=== PATIENT | female | born 1960 | race American Indian/Alaskan Native ===

== ENCOUNTER 2016-08-12 10:04 | Outpatient (CLI) | payer MEDICARE ==
--- NOTE | 2016-08-13 11:08 | Vascular Lab Report ---
LOWER EXTREMITY VENOUS DUPLEX: REASON FOR EXAM: Bilateral leg pain. COMMENTS ON THE RIGHT: All veins visualized are freely compressible without evidence of internal echogenicity. Flow is spontaneous and phasic throughout. COMMENTS ON THE LEFT: All veins visualized are freely compressible without evidence of internal echogenicity. Flow is spontaneous and phasic throughout. IMPRESSION: No evidence of acute or chronic deep venous thrombosis in either lower extremity.
--- NOTE | 2016-08-13 15:07 | Mammography Report ---
BONE DEXA:08/12/16 10:04:00 CLINICAL: Postmenopausal.Bilateral leg pain. TECHNIQUE: Two site bone DEXA performed on an Hologic scanner. FINDINGS: The average BMD of the right forearm is 0.597g/cm squared with a T-score of +0.6 and a Z-score of +1.8. The average BMD of the left forearm is 0.614g/cm squared with a T-score of +1.0 and a Z-score of +2.2. IMPRESSION: WHO classification: Normal with average fracture risk based on bilateral forearm measurements. RECOMMENDATION: Clinical correlation and routine screening. DEFINITIONS: BMD = Bone Mineral Density T-score = BMD related to mean peak bone mass of young adult (mean expressed in Standard Deviation) Z-score = Age matched BMD expressed in SD World Health Organization (WHO) Diagnostic Criteria Normal T-score > -1 SD Osteopenia T-score between -1 and -2.4 SD Osteoporosis T-score -2.5 SD or below NOTE: BMD is not the only risk factor for fracture. One should also consider factors such as the patient's age, risk of falling, previous osteoporotic fracture, family history of osteoporotic fractures, current smoker, and low body weight. Z-scores are not calculated if >80 years of age.
== END 2016-08-12 10:05 | disposition home or self-care (01) ==
LOC: VAS 10:04
PROVIDERS: ATTEND Internal Medicine
DX: M79.604 Pain in right leg (principal); Z78.0 Asymptomatic menopausal state
CPT/HCPCS: 77080; 93970

== ENCOUNTER 2020-07-02 09:57 | Emergency (ER) | payer MEDICARE ==
--- NOTE | 2020-07-02 12:39 | Event Note ---
ED Screening Note ED Screening Note: c/o low back pain states she went to [facility] yesterday and had a CXR and CT abd pelvis states she tested positive for COVID 19 yesterday she eloped from the emergency department from [facility] twice This initial assessment/diagnostic orders/clinical plan/treatment(s) is/are subject to change based on patients health status, clinical progression and re- assessment by fellow clinical providers in the ED. Further treatment and workup at subsequent clinical providers discretion. Patient/guardian urged not to elope from the ED as their condition may be serious if not clinically assessed and managed. Initial orders include: labs, UA, XR lumbar spine, CXR
[2020-07-02 14:34] LABS: Basophils # (Auto) 0.1 K/mm3 (0.0-0.1); Basophils % (Auto) 0.4 % (0.0-1.8); Eosinophils # (Auto) 0.1 K/mm3 (0.0-0.4); Hematocrit 43.4 % (30.3-42.9); Hemoglobin 14.4 gm/dl (10.1-14.3); Lymphocytes # (Auto) 2.9 K/mm3 (1.2-5.4); Lymphocytes % (Auto) 24.4 % (13.4-35.0); Mean Corpuscular HGB Conc 33 % (30-34); Mean Corpuscular Volume 86 fl (79-97); Monocytes # (Auto) 0.9 K/mm3 (0.0-0.8); Monocytes % (Auto) 7.3 % (0.0-7.3); Platelet Count 429 K/mm3 (140-440); Red Blood Count 5.08 M/mm3 (3.65-5.03); Red Cell Distribution Width 13.4 % (13.2-15.2)
[2020-07-02 14:42] LABS: Alanine Aminotransferase 38 units/L (7-56); Albumin 3.6 g/dL (3.9-5); Blood Urea Nitrogen 7 mg/dL (7-17); Calcium 8.7 mg/dL (8.4-10.2); Hemolysis Index 0
[2020-07-02 14:58] LABS: BUN/Creatinine Ratio 10
[2020-07-02] MEDS ORDERED: cephALEXin 500 MG CAP PO ONE (16:29)
[2020-07-02] MEDS ORDERED: HYDROcodone/ACETAMINOPHEN 5-325 MG TAB PO ONE (16:29)
[2020-07-02] MEDS ORDERED: ONDANSETRON 4 MG ODT TAB PO ONE (16:29)
--- NOTE | 2020-07-02 16:29 | Emergency Department Report ---
ED Back Pain/Injury HPI - General Chief Complaint: Back Pain/Injury Stated Complaint: LOWER BACK PAIN Time Seen by Provider: 07/02/20 12:34 Source: patient Limitations: No Limitations - History of Present Illness Initial Comments: Chief complaint: Back pain headache weakness positive Covid test HPI this is a 59-year-old female with history of CHF, COPD, diabetes mellitus who was recently diagnosed with COVID-19 infection at outside hospital. She also received chest radiograph and CT abdomen pelvis for evaluation. She thinks that she may have a bladder infection causing the lower back pain. She has mild back pain generalized malaise. She denies fever. Denies chills. No trauma. Back pain does not radiate. Gradual onset of symptoms 2 days ago. Back pain is persistent. Back pain does not change with movement. Patient left the emergency department before finalizing treatment. Consequently she did not receive any medication prescription. MD Complaint: back pain -: Gradual, days(s) (2) Similar Symptoms Previously: Yes Place: home Severity: mild Quality: dull, aching Consistency: constant Improves With: none Worsens With: none Context: other (History of UTI) Associated Symptoms: weakness, malaise, other (Headache) - Related Data Previous Rx's Medication Instructions Recorded Last Taken Type HYDROcodone/APAP 5-325 [[place] 1 each PO Q6HR PRN #10 tablet 07/02/20 Unknown Rx 5/325] Promethazine [Phenergan] 25 mg PO Q6HR PRN #10 tab 07/02/20 Unknown Rx cephALEXin [Keflex] 500 mg PO TID 5 Days #15 cap 07/02/20 Unknown Rx Allergies Allergy/AdvReac Type Severity Reaction Status Date / Time No Known Allergies Allergy Unverified 08/12/16 10:04 ED Review of Systems ROS: Stated complaint: LOWER BACK PAIN Other details as noted in HPI Comment: All other systems reviewed and negative Constitutional: malaise. denies: fever Respiratory: denies: shortness of breath Cardiovascular: denies: chest pain Gastrointestinal: denies: abdominal pain Musculoskeletal: back pain Neurological: headache ED Past Medical Hx - Past Medical History Previous Medical History?: Yes Hx Congestive Heart Failure: Yes Hx Diabetes: Yes Hx COPD: Yes - Social History Smoking Status: Never Smoker Substance Use Type: None - Medications Home Medications: Home Medications Medication Instructions Recorded Confirmed Last Taken Type HYDROcodone/APAP 5-325 [[place] 1 each PO Q6HR PRN #10 tablet 07/02/20 Unknown Rx 5/325] Promethazine [Phenergan] 25 mg PO Q6HR PRN #10 tab 07/02/20 Unknown Rx cephALEXin [Keflex] 500 mg PO TID 5 Days #15 cap 07/02/20 Unknown Rx ED Physical Exam - General Limitations: No Limitations General appearance: alert, in no apparent distress - Head Head exam: Present: atraumatic, normocephalic - Eye Eye exam: Present: normal appearance - ENT ENT exam: Present: mucous membranes moist - Neck Neck exam: Present: normal inspection, full ROM - Respiratory Respiratory exam: Present: normal lung sounds bilaterally. Absent: respiratory distress, wheezes, rales, rhonchi, stridor - Cardiovascular Cardiovascular Exam: Present: regular rate, normal rhythm, normal heart sounds. Absent: systolic murmur, diastolic murmur, rubs, gallop - GI/Abdominal GI/Abdominal exam: Present: soft, normal bowel sounds. Absent: distended, tenderness, guarding, rebound - Extremities Exam Extremities exam: Present: normal inspection - Back Exam Back exam: Present: normal inspection, full ROM. Absent: tenderness, CVA tenderness (R), CVA tenderness (L), muscle spasm, paraspinal tenderness, vertebral tenderness - Neurological Exam Neurological exam: Present: alert, oriented X3, normal gait - Psychiatric Psychiatric exam: Present: normal affect, normal mood - Skin Skin exam: Present: warm, dry, intact, normal color. Absent: rash ED Course Vital Signs 07/02/20 11:30 Temperature 98.4 F Pulse Rate 96 H Respiratory 24 Rate Blood Pressure 142/95 [Right] O2 Sat by Pulse 96 Oximetry ED Medical Decision Making - Lab Data Result diagrams: 07/02/20 14:06 07/02/20 14:06 Laboratory Results - last 24 hr 07/02/20 07/02/20 14:06 14:06 WBC 12.0 H RBC 5.08 H Hgb 14.4 H Hct 43.4 H MCV 86 MCH 28 MCHC 33 RDW 13.4 Plt Count 429 Lymph % (Auto) 24.4 [place] % (Auto) 7.3 Eos % (Auto) 1.0 Baso % (Auto) 0.4 Lymph # (Auto) 2.9 [place] # (Auto) 0.9 H Eos # (Auto) 0.1 Baso # (Auto) 0.1 Seg Neutrophils % 66.9 Seg Neutrophils # 8.0 H Sodium 141 Potassium 3.0 L Chloride 96.4 L Carbon Dioxide 32 H Anion Gap 16 BUN 7 Creatinine 0.7 Estimated GFR > 60 BUN/Creatinine Ratio 10 Glucose 231 H Calcium 8.7 Total Bilirubin 0.40 AST 26 ALT 38 Alkaline Phosphatase 79 Total Protein 6.8 Albumin 3.6 L Albumin/Globulin Ratio 1.1 - Medical Decision Making Ms. Burch presents with generalized complaints of malaise, headache, back pain. She has a recent COVID-19 test. No red flags for back pain including fever or trauma or weight loss. Patient appears comfortable. She has a normal neurological exam. I suspect patient has generalized symptoms due to COVID-19. I have prescribed Keflex for possible atypical pneumonia versus UTI. Also provided [place] and promethazine for symptomatic treatment. Critical care attestation.: If time is entered above; I have spent that time in minutes in the direct care of this critically ill patient, excluding procedure time. ED Disposition Clinical Impression: COVID-19, Back pain Disposition: DC-01 TO HOME OR SELFCARE Is pt being admited?: No Does the pt Need Aspirin: No Condition: Stable Instructions: COVID-19 Prescriptions: cephALEXin [Keflex] 500 mg PO TID 5 Days #15 cap HYDROcodone/APAP 5-325 [[place] 5/325] 1 each PO Q6HR PRN #10 tablet PRN Reason: Pain Promethazine [Phenergan] 25 mg PO Q6HR PRN #10 tab PRN Reason: Nausea Referrals: EMILIANA BARBER MD [Staff Physician] - 3-5 Days
[2020-07-02 16:45] VITALS: BP 120/66
== END 2020-07-02 17:38 | disposition home or self-care (01) ==
LOC: ED 09:57
DX: U07.1 COVID-19 (principal); M54.5 Low back pain; I50.9 Heart failure, unspecified; E11.9 Type 2 diabetes mellitus without complications; J44.9 Chronic obstructive pulmonary disease, unspecified; Z79.899 Other long term (current) drug therapy
CPT/HCPCS: 36415; 80053; 85025; Q0162